=== PATIENT | female | born 1960 ===

== ENCOUNTER → 2016-08-06 | Outpatient (CLI) | payer OTHER ==
[~2016-08-06] MED LIST: GADOBUTROL 10 ML VIAL IVP ONE
== END ==
LOC: FIMAGING 09:39
PROVIDERS: ATTEND Internal Medicine Hematology & Oncology
DX: R51 Headache (principal); C50.919 Malignant neoplasm of unspecified site of unspecified female breast
CPT/HCPCS: A9585